=== PATIENT | male | born 1945 | race Caucasian/White ===

== ENCOUNTER → 2020-12-02 14:21 | Outpatient (CLI) | payer MEDICARE, SELFPAY ==
--- NOTE | 2020-12-02 14:25 | DI.RAD.S_ITS ---
PROCEDURE: XR SHOULDER RT MIN 2V INDICATIONS: BI SHOULDER PAIN TECHNIQUE: 3 views of the shoulder were acquired. COMPARISON: None. FINDINGS: Bones: No fractures or dislocations. No suspicious bony lesions. Visualized ribs appear intact. Severe periarticular osteophyte formation at the acromioclavicular joint. Moderate periarticular osteophyte formation at the glenohumeral joint. Soft tissues: No suspicious soft tissue calcifications. IMPRESSION: Osteoarthritis. No acute fracture. No osseous lesion. If symptoms and/or clinical suspicion for pathology persist, further assessment with repeat, or advanced imaging (e.g., CT, MRI, or bone scan) may be helpful for further assessment. Dictated by: Gurwinder Harper M.D. on 12/02/2020 at 13:54 Approved by: Gurwinder Harper M.D. on 12/02/2020 at 13:54
--- NOTE | 2020-12-02 14:25 | DI.RAD.S_ITS ---
PROCEDURE: XR SHOULDER LT MIN 2V INDICATIONS: BI SHOULDER PAIN TECHNIQUE: 3 views of the shoulder were acquired. COMPARISON: None. FINDINGS: Bones: No fractures or dislocations. No suspicious bony lesions. Visualized ribs appear intact. Moderate periarticular osteophyte formation at the acromioclavicular and glenohumeral joints. Soft tissues: No suspicious soft tissue calcifications. IMPRESSION: Osteoarthritis. No acute fracture. No osseous lesion. If symptoms and/or clinical suspicion for pathology persist, further assessment with repeat, or advanced imaging (e.g., CT, MRI, or bone scan) may be helpful for further assessment. Dictated by: Gurwinder Harper M.D. on 12/02/2020 at 13:53 Approved by: Gurwinder Harper M.D. on 12/02/2020 at 13:54
== END ==
PROVIDERS: PCP Family Medicine; Referring Provider Family Medicine; Visit Provider Family Medicine
DX: M25.511 Pain in right shoulder (principal); M25.512 Pain in left shoulder; M19.012 Primary osteoarthritis, left shoulder; M19.011 Primary osteoarthritis, right shoulder
CPT/HCPCS: 73030

== ENCOUNTER → 2021-10-11 06:56 | Outpatient (CLI) | payer MEDICARE, SELFPAY ==
--- NOTE | 2021-10-11 | DI.ECHO.S_ITS ---
[facility] +---------+ : : [address] : : : [place], [place] : : : : [id number] : : : : Phone: [phone]+ Echocardiogram Report + + :Name: RAFIQ HERNANDEZ Study Date: 10/11/2021 Height: 66 in : :[facility] ReadingLocation: Weight: 240 lb : : Gender: Male BSA: 2.2 m2 : :: 1945 Age: 76 yrs BP: 159/89 mmHg: :Reason For Study: Dyspnea : :Ordering Physician: VENICE, : :ROMARIO Performed By: Danny Mackenzie : :Referring: ROMARIO MILLARD : + + Interpretation Summary A contrast injection of Definity was performed to improve assessment of LV function. The ejection fraction is estimated to be 55-60%. There are no focal wall motion abnormalities. There is mild aortic regurgitation. The ascending aorta is mildly enlarged. Procedure: A two-dimensional transthoracic echocardiogram with color flow and Doppler was performed. The study quality was technically adequate. There is no prior echocardiogram noted for this patient. A contrast injection of Definity was performed to improve assessment of LV function. The patient was in normal sinus rhythm during the exam. Left Ventricle: The left ventricle is normal in size and wall thickness. Trabeculae near apex are visualized. No thrombus is observed. Left ventricular systolic function is normal. The ejection fraction is estimated to be 55-60%. There are no focal wall motion abnormalities. Diastolic function could not be accurately assessed due to unobtainable data. Right Ventricle: The right ventricle is normal in size and function. Atria: Both atria are normal in size. The interatrial septum grossly appears intact with no obvious evidence for an atrial septal defect. Mitral Valve: The mitral valve is normal in structure and function. There is no mitral regurgitation noted. Aortic Valve: There is mild aortic valve sclerosis. There is mild aortic regurgitation. Tricuspid Valve: The tricuspid valve is normal in structure and function. There is a trace or physiologic amount of tricuspid regurgitation. Pulmonary artery pressures cannot be estimated because of the lack of a measurable TR jet velocity. Pulmonic Valve: The pulmonic valve is normal in structure and function. There is a trace or physiologic amount of pulmonic regurgitation. Great Vessels: The aortic root is normal size. The ascending aorta is mildly enlarged. The IVC is of normal diameter and collapses greater than 50% with a sniff. This suggests a low right atrial pressure of 3 mm Hg. Pericardium/ Pleura There is no pericardial effusion. There is no pleural effusion. MMode/2D Measurements & Calculations LVIDd: 5.8 cm LVOT diam: 2.3 cm LVIDs: 4.0 cm Ao root diam: 3.6 cm FS: 31.0 % asc Aorta Diam: 3.8 cm IVSd: 1.0 cm LVPWd: 0.90 cm LV corona. diameter/BSA (cm/m^2): 2.7 LV sys. diameter/BSA (cm/m^2): 1.9 LA dimension: 3.9 cm RA long axis: 5.1 cm LA A2 area: 20.2 cm2 LA A4 area: 17.5 cm2 LA length (vol): 5.8 cm LA vol: 52.2 ml LA vol index: 24.1 ml/m2 TAPSE_phl: 2.5 cm Doppler Measurements & Calculations Ao V2 max: 140.0 cm/sec LVOT Max Grant: 114.0 cm/sec Ao V2 mean: 95.5 cm/sec LV V1 max P.2 mmHg Ao max P.0 mmHg LV V1 VTI: 24.3 cm Ao mean P.0 mmHg NETTIE(I,D): 4.0 cm2 Ao V2 VTI: 25.2 cm NETTIE(V,D): 3.4 cm2 sev ratio: 0.96 NETTIE indexed to BSA (cm^2/m^2): 1.9 MV E max grant: 60.8 cm/sec SV(LVOT): 101.0 ml MV A max grant: 74.6 cm/sec MV E/A: 0.82 Med Peak E' Grant: 5.4 cm/sec E/E' med: 11.2 Lat Peak E' Grant: 7.7 cm/sec E/E' lat: 7.9 E/e' average: 9.5 MV dec time: 0.28 sec AV VR_phl: 0.81 MV P1/2t-pr_phl: 83.0 msec NETTIE(VTI)/BSA_phl: 1.9 Reading Physician:08:51 AM
== END ==
PROVIDERS: PCP Family Medicine; Referring Provider Student in an Organized Health Care Education/Training Program; Visit Provider Student in an Organized Health Care Education/Training Program
DX: I35.1 Nonrheumatic aortic (valve) insufficiency (principal); I77.89 Other specified disorders of arteries and arterioles; R06.09 Other forms of dyspnea; R22.43 Localized swelling, mass and lump, lower limb, bilateral
CPT/HCPCS: C8929; Q9957

== ENCOUNTER 2022-01-06 04:45 | Observation (INO) | payer OTHER, SELFPAY ==
[2022-01-06] VITALS (20 sets, daily range): BP systolic 139–210; BP diastolic 67–90; PULSE 62–80; RESP 14–26; TEMP 35.9–36.5; O2SAT 93–100; BMI 36.6
--- NOTE | 2022-01-06 05:04 | DI.CT.S_ITS ---
PROCEDURE: CT HEAD/BRAIN WO CON INDICATIONS: dizzy, spinning, HTN TECHNIQUE: Noncontrast 4.5 mm thick angled axial sections acquired from the foramen magnum to the vertex, with coronal and sagittal reformats. For radiation dose reduction, the following was used: automated exposure control, adjustment of mA and/or kV according to patient size. COMPARISON: None. FINDINGS: Image quality: Excellent. CSF spaces: Basal cisterns are patent. No extra-axial fluid collections. The ventricles are symmetric in size and shape. Brain: No intracranial bleeds or masses. There is cerebral volume loss for age, with resultant ventricular and sulcal prominence. There are periventricular and deep white matter chronic small vessel ischemic changes. There is intracranial internal carotid artery atherosclerosis. Skull and face: Calvarium and visualized facial bones appear intact, without suspicious lesions. Sinuses: Visualized sinuses and mastoids are clear. IMPRESSION: No intracranial hemorrhage or acute findings. No significant discrepancy from overnight interpretation. Dictated by: Sherman Briggs M.D. on 01/06/2022 at 7:24 Approved by: Sherman Briggs M.D. on 01/06/2022 at 7:25
--- NOTE | 2022-01-06 05:05 | DI.RAD.S_ITS ---
PROCEDURE: XR CHEST 1V INDICATIONS: HTN, weak TECHNIQUE: One view of the chest was acquired. COMPARISON: None. FINDINGS: Surgical changes and devices: None. Lungs and pleura: Lungs are clear. No pleural effusions or pneumothorax. Mediastinum: Mediastinal contours appear normal. Heart size is normal. Bones and chest wall: No suspicious bony lesions. Overlying soft tissues appear unremarkable. IMPRESSION: No acute cardiopulmonary findings. Dictated by: Sherman Briggs M.D. on 01/06/2022 at 6:55 Approved by: Sherman Briggs M.D. on 01/06/2022 at 6:56
--- NOTE | 2022-01-06 05:06 | ED_ITS ---
HPI - General Adult <Rip Nick DO - Last Filed: 01/07/22 03:27> General Chief complaint: Shortness of Breath/Dyspnea Stated complaint: sob/dizzy Time Seen by Provider: 01/06/22 05:00 History of Present Illness HPI narrative: 76-year-old male nonsmoker with history of hypertension and diabetes presents with family in the chief complaint of dizziness and fatigue it seems to have come on rather suddenly at about 2:00 a.m. this morning. He states that he was in his normal state of health yesterday and had no issues. He states that he was vigorously chopping wood and denies any exertional symptoms or issues whatsoever with that. He states that he does have a history of vertigo and this does feel similar many was but he wanted to be checked out. He states the dizziness feels somewhere between everything spinning and him feeling like he may pass out. He states it is worse when he lays flat seems to improve when he is up and about. He denies any change in medications or missed doses. He has no significant dietary change. He denies any chest pain, runny nose, sore throat or cough. He is had no nausea, vomiting or diarrhea. He denies abdomi nal pain, dysuria, urgency or frequency. He states he has prostate biopsy coming up that he likely is feeling somewhat nervous about. Also, he has had some trouble with speech for many months and his pattern of speech tonight is no different than normal Related Data Home Medications Medication Instructions Recorded Confirmed allopurinol 300 mg tablet 150 mg PO DAILY 01/06/22 01/06/22 amlodipine 10 mg tablet 10 mg PO DAILY 01/06/22 01/06/22 glipizide 5 mg tablet 5 mg PO BID 01/06/22 01/06/22 hydrochlorothiazide 12.5 mg tablet 12.5 mg PO DAILY 01/06/22 01/06/22 lisinopril 20 mg tablet 20 mg PO DAILY 01/06/22 01/06/22 metformin 1,000 mg tablet 1,000 mg PO BID 01/06/22 01/06/22 rosuvastatin 40 mg tablet 40 mg PO DAILY 01/06/22 01/06/22 Allergies Allergy/AdvReac Type Severity Reaction Status Date / Time No Known Allergies Allergy Uncoded 08/13/17 12:43 Review of Systems <Rip Nick DO - Last Filed: 01/07/22 03:27> Review of Systems Narrative: GENERAL: See HPI HEENT: Denies sinus pain, ear pain, sore throat, difficulty swallowing, dizziness. RESPIRATORY: See HPI CARDIOVASCULAR: See HPI GASTROINTESTINAL: See HPI : Denies dysuria, frequency, incontinence, hematuria, urinary retention. MUSCULOSKELETAL: denies weakness, joint pain, or bony pain SKIN: Denies rash, skin lesions, or other NEUROLOGIC: See HPI PSYCHIATRIC: No concerning psychosocial issues. 12 point review of systems is negative except for those stated above Patient History <Rip Nick DO - Last Filed: 01/07/22 03:27> Medical History (Updated 01/06/22 @ 09:56 by Kristin Stauffer DO) Chronic kidney disease, stage 3 Diabetes HTN (hypertension) Surgical History (Updated 01/06/22 @ 12:18 by Luke Webster DO) H/O umbilical hernia repair Family History (Updated 01/06/22 @ 12:18 by Luke Webster DO) Father Cancer Brother Congestive heart failure CAD (coronary artery disease) Mother CAD (coronary artery disease) Social History Smoking Status: Never smoker alcohol intake: never Exam <Rip Nick DO - Last Filed: 01/07/22 03:27> Narrative Exam Narrative: GENERAL: [76] year old patient appears stated age. Well-developed patient, in mild distress. HEAD: Atraumatic. Normocephalic. EYES: Pupils equal round and reactive. Extraocular motions intact. No scleral icterus. No injection or drainage. ENT: Nose without bleeding, purulent drainage. Throat without erythema, tonsillar hypertrophy or exudate. Airway patent. NECK: Trachea midline. Non tender CARDIOVASCULAR: Regular rate and rhythm without murmurs, gallops, or rubs. RESPIRATORY: Clear to auscultation. Breath sounds equal bilaterally. No wheezes, rales, or rhonchi. GASTROINTESTINAL: Abdomen soft, non-tender, nondistended. EXTREMITIES: No edema or joint tenderness. BACK: Nontender without deformity or crepitance. No flank tenderness. NEURO: AOx3. SKIN: No rash or erythema of visible areas Initial Vital Signs Initial Vital Signs: Vital Signs Temperature 97.1 F L 01/06/22 05:03 Pulse Rate 71 01/06/22 05:03 Respiratory Rate 20 01/06/22 05:03 Blood Pressure 210/90 H 01/06/22 05:03 Pulse Oximetry 100 01/06/22 05:03 Oxygen Delivery Method 01/06/22 05:03 <Kristin Stauffer, DO - Last Filed: 01/06/22 18:57> Initial Vital Signs Initial Vital Signs: Vital Signs Temperature 97.1 F L 01/06/22 05:03 Pulse Rate 71 01/06/22 05:03 Respiratory Rate 20 01/06/22 05:03 Blood Pressure 210/90 H 01/06/22 05:03 Pulse Oximetry 100 01/06/22 05:03 Oxygen Delivery Method 01/06/22 05:03 Course <Rip Nick, DO - Last Filed: 01/07/22 03:27> Orders Ordered: Acetaminophen (Acetaminophen 325 Mg Tablet) 975 mg PO Q8H PRN PRN Reason: Pain, Mild (1-3) Amlodipine Besylate (Amlodipine 5 Mg Tablet) 10 mg PO DAILY [facility] Dextrose (Dextrose 50 % In Water 25 Gm/50 Ml Syringe) 25 gm IV PRN PRN PRN Reason: Hypoglycemia Enoxaparin Sodium (Enoxaparin 30 Mg/0.3 Ml Syringe) 30 mg SUBCUT DAILY [facility] Insulin Human Lispro (Insulin Lispro 100 Unit/Ml 3ml Vial) 0 unit SUBCUT ACHS [facility]; Protocol Last Admin: 01/06/22 21:03 Dose: Not Given Documented By: Admin: 01/06/22 17:02 Dose: Not Given Documented By: WALDEMAR Discontinued Medications Sodium Chloride (Normal Saline 0.9%) 1,000 mls @ 125 mls/hr IV CONT [facility] Last Admin: 01/06/22 05:13 Dose: 125 mls/hr Documented By: LEYDI Meclizine HCl (Meclizine Hcl 12.5 Mg Tablet) 50 mg PO NOW ONE Stop: 01/06/22 05:05 Last Admin: 01/06/22 05:13 Dose: 50 mg Documented By: LEYDI Consultations Consultation #1: Provider on-call for his PCP contacted and patient had blood work done in August noting creatinine 1.96 with GFR 35 Vital Signs Vital signs: Vital Signs - 8 hr 01/06/22 05:03 01/06/22 05:20 01/06/22 05:20 Temperature 97.1 F L Pulse Rate 71 74 Respiratory Rate 20 Blood Pressure 210/90 H 149/73 H Pulse Oximetry 100 97 Oxygen Delivery Method Room Air 01/06/22 05:42 01/06/22 06:00 01/06/22 06:07 Temperature Pulse Rate 77 69 72 Respiratory Rate 16 20 Blood Pressure Pulse Oximetry 98 97 97 Oxygen Delivery Method 01/06/22 06:07 01/06/22 06:30 01/06/22 06:31 Temperature Pulse Rate 67 68 Respiratory Rate 17 17 Blood Pressure 169/76 H Pulse Oximetry 97 97 Oxygen Delivery Method 01/06/22 06:31 01/06/22 07:00 01/06/22 07:00 Temperature Pulse Rate 72 Respiratory Rate 21 Blood Pressure 162/73 H 152/72 H Pulse Oximetry 96 Oxygen Delivery Method 01/06/22 07:30 01/06/22 07:30 01/06/22 08:00 Temperature Pulse Rate 75 Respiratory Rate 19 Blood Pressure 139/67 148/69 H Pulse Oximetry 97 Oxygen Delivery Method 01/06/22 08:00 01/06/22 08:30 01/06/22 09:00 Temperature Pulse Rate 70 71 64 Respiratory Rate 20 22 21 Blood Pressure Pulse Oximetry 95 95 93 Oxygen Delivery Method <Kristin Stauffer, - Last Filed: 01/06/22 18:57> Orders Ordered: Acetaminophen (Acetaminophen 325 Mg Tablet) 975 mg PO Q8H PRN PRN Reason: Pain, Mild (1-3) Amlodipine Besylate (Amlodipine 5 Mg Tablet) 10 mg PO DAILY [facility] Dextrose (Dextrose 50 % In Water 25 Gm/50 Ml Syringe) 25 gm IV PRN PRN PRN Reason: Hypoglycemia Enoxaparin Sodium (Enoxaparin 30 Mg/0.3 Ml Syringe) 30 mg SUBCUT DAILY [facility] Insulin Human Lispro (Insulin Lispro 100 Unit/Ml 3ml Vial) 0 unit SUBCUT ACHS [facility]; Protocol Last Admin: 01/06/22 21:03 Dose: Not Given Documented By: Admin: 01/06/22 17:02 Dose: Not Given Documented By: WALDEMAR Discontinued Medications Sodium Chloride (Normal Saline 0.9%) 1,000 mls @ 125 mls/hr IV CONT [facility] Last Admin: 01/06/22 05:13 Dose: 125 mls/hr Documented By: LEYDI Meclizine HCl (Meclizine Hcl 12.5 Mg Tablet) 50 mg PO NOW ONE Stop: 01/06/22 05:05 Last Admin: 01/06/22 05:13 Dose: 50 mg Documented By: LEYDI Consultations Consultation #2: Dr. Webster, hospitalist: Accepts for observation for vertigo unclear origin with longstanding speech issues and some weakness in the left leg although patient does have some knee pain. Patient also has acute on chronic kidney disease which appears to be intrinsic based on ultrasound and FENA. Was re-contacted with Cardiology recommendations after having run of a wide complex tachycardia. Consultation #3: Dr. Dang, cardiology [facility]. Review patient's telemetry as well as EKG, feels that this time it is unsustained ventricular tachycardia, does not require transfer today or device implantation does recommend echo, stress test, mac, potassium and TSH if testing is negative follow-up outpatient with Cardiology for event monitor. If positive testing to re-contact cardiology. Can start patient on metoprolol 12.5 mg daily. Time: 09:45 Vital Signs Vital signs: Vital Signs - 8 hr 01/06/22 05:03 01/06/22 05:20 01/06/22 05:20 Temperature 97.1 F L Pulse Rate 71 74 Respiratory Rate 20 Blood Pressure 210/90 H 149/73 H Pulse Oximetry 100 97 Oxygen Delivery Method Room Air 01/06/22 05:42 01/06/22 06:00 01/06/22 06:07 Temperature Pulse Rate 77 69 72 Respiratory Rate 16 20 Blood Pressure Pulse Oximetry 98 97 97 Oxygen Delivery Method 01/06/22 06:07 01/06/22 06:30 01/06/22 06:31 Temperature Pulse Rate 67 68 Respiratory Rate 17 17 Blood Pressure 169/76 H Pulse Oximetry 97 97 Oxygen Delivery Method 01/06/22 06:31 01/06/22 07:00 01/06/22 07:00 Temperature Pulse Rate 72 Respiratory Rate 21 Blood Pressure 162/73 H 152/72 H Pulse Oximetry 96 Oxygen Delivery Method 01/06/22 07:30 01/06/22 07:30 01/06/22 08:00 Temperature Pulse Rate 75 Respiratory Rate 19 Blood Pressure 139/67 148/69 H Pulse Oximetry 97 Oxygen Delivery Method 01/06/22 08:00 01/06/22 08:30 01/06/22 09:00 Temperature Pulse Rate 70 71 64 Respiratory Rate 20 22 21 Blood Pressure Pulse Oximetry 95 95 93 Oxygen Delivery Method Medical Decision Making <Rip [place], - Last Filed: 01/07/22 03:27> Lab Data Result diagrams: 01/06/22 05:21 01/06/22 07:22 Labs: Lab Results 01/06/22 01/06/22 01/06/22 Range/Units 05:21 05:21 05:21 WBC 8.2 (4.5-11.0) X10^3/uL RBC 3.76 L (4.5-5.9) X10^6/uL Hgb 12.4 L (13.5-17.5) g/dL Hct 36.2 L (41-53) % MCV 96.1 (80-100) fL MCH 32.9 (26-34) PG MCHC 34.2 (30-36) % RDW 14.5 (11.6-14.8) % Plt Count 224 (150-400) X10^3/uL Neut % (Auto) 73.7 (50-75) % Lymph % (Auto) 15.9 L (25-40) % Dickenson % (Auto) 8.2 (3-14) % Eos % (Auto) 1.4 L (2-4) % Baso % (Auto) 0.8 (0-2) % Neut # (Auto) 6100 (1004-0213) /uL Lymph # (Auto) 1300 (2456-3024) /uL Dickenson # (Auto) 700 (0-900) /uL Eos # (Auto) 100 (0-450) /uL Baso # (Auto) 100 (0-100) /uL Sodium 137 (137-145) mmol/L Potassium 4.4 (3.4-5.1) mmol/L Chloride 108 H (98-107) mmol/L Carbon Dioxide 24 (22-32) mmol/L BUN 47 H (9-20) mg/dL Creatinine 2.82 H (0.66-1.25) mg/dL Estimated GFR 23 L (>60) mL/min BUN/Creatinine Ratio 16.7 (6-22) Glucose 146 H (80-110) mg/dL Calcium 8.8 (8.4-10.2) mg/dL Magnesium 1.7 (1.6-2.3) mg/dL Total Bilirubin 0.6 (0.2-1.3) mg/dL AST 39 (17-59) IU/L ALT 37 (<50) IU/L Alkaline Phosphatase 84 (38-126) U/L Total Creatine Kinase 60 (55-170) U/L CK-MB (CK-2) TNP CK-MB (CK-2) Rel Index TNP Troponin I 0.015 (0.01-0.034) ng/mL NT-Pro-B Natriuret Pep 916 H (<125) pg/mL Total Protein 6.7 (6.3-8.2) g/dL Albumin 3.7 (3.5-5.0) g/dL Globulin 3.0 (1.7-4.1) g/dL Albumin/Globulin Ratio 1.2 (1.0-2.8) TSH 3.16 (0.47-4.68) uIU/mL Urine Color Urine Appearance Urine pH (4.5-8.0) Ur Specific Mullin (1.000-1.035) Urine Protein (Negative) Urine Glucose (UA) (Negative) g/dL Urine Ketones (NEGATIVE) Urine Occult Blood (Negative) Urine Nitrate (Negative) Urine Bilirubin (NEGATIVE) Urine Urobilinogen (0.2) E.U./dL Ur Leukocyte Esterase (NEGATIVE) Urine RBC (0-5/HPF) Urine WBC (0-5/HPF) Urine Bacteria (None) Hyaline Casts (None) Ur Culture Indicated? Ur Random Sodium (30-90) mmol/L Urine Creatinine mg/dL SARS-CoV-2 (PCR) (Negative) 01/06/22 01/06/22 01/06/22 Range/Units 06:05 06:05 07:18 WBC (4.5-11.0) X10^3/uL RBC (4.5-5.9) X10^6/uL Hgb (13.5-17.5) g/dL Hct (41-53) % MCV (80-100) fL MCH (26-34) PG MCHC (30-36) % RDW (11.6-14.8) % Plt Count (150-400) X10^3/uL Neut % (Auto) (50-75) % Lymph % (Auto) (25-40) % Dickenson % (Auto) (3-14) % Eos % (Auto) (2-4) % Baso % (Auto) (0-2) % Neut # (Auto) (2307-6611) /uL Lymph # (Auto) (1337-7636) /uL Dickenson # (Auto) (0-900) /uL Eos # (Auto) (0-450) /uL Baso # (Auto) (0-100) /uL Sodium (137-145) mmol/L Potassium (3.4-5.1) mmol/L Chloride (98-107) mmol/L Carbon Dioxide (22-32) mmol/L BUN (9-20) mg/dL Creatinine (0.66-1.25) mg/dL Estimated GFR (>60) mL/min BUN/Creatinine Ratio (6-22) Glucose (80-110) mg/dL Calcium (8.4-10.2) mg/dL Magnesium (1.6-2.3) mg/dL Total Bilirubin (0.2-1.3) mg/dL AST (17-59) IU/L ALT (<50) IU/L Alkaline Phosphatase (38-126) U/L Total Creatine Kinase (55-170) U/L CK-MB (CK-2) CK-MB (CK-2) Rel Index Troponin I (0.01-0.034) ng/mL NT-Pro-B Natriuret Pep (<125) pg/mL Total Protein (6.3-8.2) g/dL Albumin (3.5-5.0) g/dL Globulin (1.7-4.1) g/dL Albumin/Globulin Ratio (1.0-2.8) TSH (0.47-4.68) uIU/mL Urine Color Yellow Urine Appearance Clear Urine pH 6.0 (4.5-8.0) Ur Specific Mullin 1.015 (1.000-1.035) Urine Protein 1+ H (Negative) Urine Glucose (UA) Trace H (Negative) g/dL Urine Ketones Negative (NEGATIVE) Urine Occult Blood 2+ H (Negative) Urine Nitrate Negative (Negative) Urine Bilirubin Negative (NEGATIVE) Urine Urobilinogen 0.2 (0.2) E.U./dL Ur Leukocyte Esterase Negative (NEGATIVE) Urine RBC 0-1/hpf (0-5/HPF) Urine WBC None seen (0-5/HPF) Urine Bacteria None seen (None) Hyaline Casts 0-1/lpf (None) Ur Culture Indicated? Cult not indicated Ur Random Sodium 111 H (30-90) mmol/L Urine Creatinine 69.6 mg/dL SARS-CoV-2 (PCR) Negative (Negative) 01/06/22 01/06/22 Range/Units 07:22 07:22 WBC (4.5-11.0) X10^3/uL RBC (4.5-5.9) X10^6/uL Hgb (13.5-17.5) g/dL Hct (41-53) % MCV (80-100) fL MCH (26-34) PG MCHC (30-36) % RDW (11.6-14.8) % Plt Count (150-400) X10^3/uL Neut % (Auto) (50-75) % Lymph % (Auto) (25-40) % Dickenson % (Auto) (3-14) % Eos % (Auto) (2-4) % Baso % (Auto) (0-2) % Neut # (Auto) (7374-6811) /uL Lymph # (Auto) (2263-0974) /uL Dickenson # (Auto) (0-900) /uL Eos # (Auto) (0-450) /uL Baso # (Auto) (0-100) /uL Sodium 139 (137-145) mmol/L Potassium 4.5 (3.4-5.1) mmol/L Chloride 108 H (98-107) mmol/L Carbon Dioxide 24 (22-32) mmol/L BUN 43 H (9-20) mg/dL Creatinine 2.66 H (0.66-1.25) mg/dL Estimated GFR 24 L (>60) mL/min BUN/Creatinine Ratio 16.2 (6-22) Glucose 149 H (80-110) mg/dL Calcium 8.3 L (8.4-10.2) mg/dL Magnesium (1.6-2.3) mg/dL Total Bilirubin (0.2-1.3) mg/dL AST (17-59) IU/L ALT (<50) IU/L Alkaline Phosphatase (38-126) U/L Total Creatine Kinase (55-170) U/L CK-MB (CK-2) CK-MB (CK-2) Rel Index Troponin I 0.015 (0.01-0.034) ng/mL NT-Pro-B Natriuret Pep (<125) pg/mL Total Protein (6.3-8.2) g/dL Albumin (3.5-5.0) g/dL Globulin (1.7-4.1) g/dL Albumin/Globulin Ratio (1.0-2.8) TSH (0.47-4.68) uIU/mL Urine Color Urine Appearance Urine pH (4.5-8.0) Ur Specific Mullin (1.000-1.035) Urine Protein (Negative) Urine Glucose (UA) (Negative) g/dL Urine Ketones (NEGATIVE) Urine Occult Blood (Negative) Urine Nitrate (Negative) Urine Bilirubin (NEGATIVE) Urine Urobilinogen (0.2) E.U./dL Ur Leukocyte Esterase (NEGATIVE) Urine RBC (0-5/HPF) Urine WBC (0-5/HPF) Urine Bacteria (None) Hyaline Casts (None) Ur Culture Indicated? Ur Random Sodium (30-90) mmol/L Urine Creatinine mg/dL SARS-CoV-2 (PCR) (Negative) Imaging Data CT scan - head: Radiologist's Impression: No acute intracranial findings Chest x-ray: Radiologist's Impression: No acute findings <Kristin Stauffer, DO - Last Filed: 01/06/22 18:57> Lab Data Labs: Lab Results 01/06/22 01/06/22 01/06/22 Range/Units 05:21 05:21 05:21 WBC 8.2 (4.5-11.0) X10^3/uL RBC 3.76 L (4.5-5.9) X10^6/uL Hgb 12.4 L (13.5-17.5) g/dL Hct 36.2 L (41-53) % MCV 96.1 (80-100) fL MCH 32.9 (26-34) PG MCHC 34.2 (30-36) % RDW 14.5 (11.6-14.8) % Plt Count 224 (150-400) X10^3/uL Neut % (Auto) 73.7 (50-75) % Lymph % (Auto) 15.9 L (25-40) % Dickenson % (Auto) 8.2 (3-14) % Eos % (Auto) 1.4 L (2-4) % Baso % (Auto) 0.8 (0-2) % Neut # (Auto) 6100 (1907-1010) /uL Lymph # (Auto) 1300 (3775-0170) /uL Dickenson # (Auto) 700 (0-900) /uL Eos # (Auto) 100 (0-450) /uL Baso # (Auto) 100 (0-100) /uL Sodium 137 (137-145) mmol/L Potassium 4.4 (3.4-5.1) mmol/L Chloride 108 H (98-107) mmol/L Carbon Dioxide 24 (22-32) mmol/L BUN 47 H (9-20) mg/dL Creatinine 2.82 H (0.66-1.25) mg/dL Estimated GFR 23 L (>60) mL/min BUN/Creatinine Ratio 16.7 (6-22) Glucose 146 H (80-110) mg/dL Calcium 8.8 (8.4-10.2) mg/dL Magnesium 1.7 (1.6-2.3) mg/dL Total Bilirubin 0.6 (0.2-1.3) mg/dL AST 39 (17-59) IU/L ALT 37 (<50) IU/L Alkaline Phosphatase 84 (38-126) U/L Total Creatine Kinase 60 (55-170) U/L CK-MB (CK-2) TNP CK-MB (CK-2) Rel Index TNP Troponin I 0.015 (0.01-0.034) ng/mL NT-Pro-B Natriuret Pep 916 H (<125) pg/mL Total Protein 6.7 (6.3-8.2) g/dL Albumin 3.7 (3.5-5.0) g/dL Globulin 3.0 (1.7-4.1) g/dL Albumin/Globulin Ratio 1.2 (1.0-2.8) TSH 3.16 (0.47-4.68) uIU/mL Urine Color Urine Appearance Urine pH (4.5-8.0) Ur Specific Mullin (1.000-1.035) Urine Protein (Negative) Urine Glucose (UA) (Negative) g/dL Urine Ketones (NEGATIVE) Urine Occult Blood (Negative) Urine Nitrate (Negative) Urine Bilirubin (NEGATIVE) Urine Urobilinogen (0.2) E.U./dL Ur Leukocyte Esterase (NEGATIVE) Urine RBC (0-5/HPF) Urine WBC (0-5/HPF) Urine Bacteria (None) Hyaline Casts (None) Ur Culture Indicated? Ur Random Sodium (30-90) mmol/L Urine Creatinine mg/dL SARS-CoV-2 (PCR) (Negative) 01/06/22 01/06/22 01/06/22 Range/Units 06:05 06:05 07:18 WBC (4.5-11.0) X10^3/uL RBC (4.5-5.9) X10^6/uL Hgb (13.5-17.5) g/dL Hct (41-53) % MCV (80-100) fL MCH (26-34) PG MCHC (30-36) % RDW (11.6-14.8) % Plt Count (150-400) X10^3/uL Neut % (Auto) (50-75) % Lymph % (Auto) (25-40) % Dickenson % (Auto) (3-14) % Eos % (Auto) (2-4) % Baso % (Auto) (0-2) % Neut # (Auto) (1888-2509) /uL Lymph # (Auto) (3039-5144) /uL Dickenson # (Auto) (0-900) /uL Eos # (Auto) (0-450) /uL Baso # (Auto) (0-100) /uL Sodium (137-145) mmol/L Potassium (3.4-5.1) mmol/L Chloride (98-107) mmol/L Carbon Dioxide (22-32) mmol/L BUN (9-20) mg/dL Creatinine (0.66-1.25) mg/dL Estimated GFR (>60) mL/min BUN/Creatinine Ratio (6-22) Glucose (80-110) mg/dL Calcium (8.4-10.2) mg/dL Magnesium (1.6-2.3) mg/dL Total Bilirubin (0.2-1.3) mg/dL AST (17-59) IU/L ALT (<50) IU/L Alkaline Phosphatase (38-126) U/L Total Creatine Kinase (55-170) U/L CK-MB (CK-2) CK-MB (CK-2) Rel Index Troponin I (0.01-0.034) ng/mL NT-Pro-B Natriuret Pep (<125) pg/mL Total Protein (6.3-8.2) g/dL Albumin (3.5-5.0) g/dL Globulin (1.7-4.1) g/dL Albumin/Globulin Ratio (1.0-2.8) TSH (0.47-4.68) uIU/mL Urine Color Yellow Urine Appearance Clear Urine pH 6.0 (4.5-8.0) Ur Specific Mullin 1.015 (1.000-1.035) Urine Protein 1+ H (Negative) Urine Glucose (UA) Trace H (Negative) g/dL Urine Ketones Negative (NEGATIVE) Urine Occult Blood 2+ H (Negative) Urine Nitrate Negative (Negative) Urine Bilirubin Negative (NEGATIVE) Urine Urobilinogen 0.2 (0.2) E.U./dL Ur Leukocyte Esterase Negative (NEGATIVE) Urine RBC 0-1/hpf (0-5/HPF) Urine WBC None seen (0-5/HPF) Urine Bacteria None seen (None) Hyaline Casts 0-1/lpf (None) Ur Culture Indicated? Cult not indicated Ur Random Sodium 111 H (30-90) mmol/L Urine Creatinine 69.6 mg/dL SARS-CoV-2 (PCR) Negative (Negative) 01/06/22 01/06/22 Range/Units 07:22 07:22 WBC (4.5-11.0) X10^3/uL RBC (4.5-5.9) X10^6/uL Hgb (13.5-17.5) g/dL Hct (41-53) % MCV (80-100) fL MCH (26-34) PG MCHC (30-36) % RDW (11.6-14.8) % Plt Count (150-400) X10^3/uL Neut % (Auto) (50-75) % Lymph % (Auto) (25-40) % Dickenson % (Auto) (3-14) % Eos % (Auto) (2-4) % Baso % (Auto) (0-2) % Neut # (Auto) (0851-5681) /uL Lymph # (Auto) (7270-5457) /uL Dickenson # (Auto) (0-900) /uL Eos # (Auto) (0-450) /uL Baso # (Auto) (0-100) /uL Sodium 139 (137-145) mmol/L Potassium 4.5 (3.4-5.1) mmol/L Chloride 108 H (98-107) mmol/L Carbon Dioxide 24 (22-32) mmol/L BUN 43 H (9-20) mg/dL Creatinine 2.66 H (0.66-1.25) mg/dL Estimated GFR 24 L (>60) mL/min BUN/Creatinine Ratio 16.2 (6-22) Glucose 149 H (80-110) mg/dL Calcium 8.3 L (8.4-10.2) mg/dL Magnesium (1.6-2.3) mg/dL Total Bilirubin (0.2-1.3) mg/dL AST (17-59) IU/L ALT (<50) IU/L Alkaline Phosphatase (38-126) U/L Total Creatine Kinase (55-170) U/L CK-MB (CK-2) CK-MB (CK-2) Rel Index Troponin I 0.015 (0.01-0.034) ng/mL NT-Pro-B Natriuret Pep (<125) pg/mL Total Protein (6.3-8.2) g/dL Albumin (3.5-5.0) g/dL Globulin (1.7-4.1) g/dL Albumin/Globulin Ratio (1.0-2.8) TSH (0.47-4.68) uIU/mL Urine Color Urine Appearance Urine pH (4.5-8.0) Ur Specific Mullin (1.000-1.035) Urine Protein (Negative) Urine Glucose (UA) (Negative) g/dL Urine Ketones (NEGATIVE) Urine Occult Blood (Negative) Urine Nitrate (Negative) Urine Bilirubin (NEGATIVE) Urine Urobilinogen (0.2) E.U./dL Ur Leukocyte Esterase (NEGATIVE) Urine RBC (0-5/HPF) Urine WBC (0-5/HPF) Urine Bacteria (None) Hyaline Casts (None) Ur Culture Indicated? Ur Random Sodium (30-90) mmol/L Urine Creatinine mg/dL SARS-CoV-2 (PCR) (Negative) ECG Data Attestation: I personally reviewed and interpreted this ECG as follows: Interpretation: Sinus rhythm rate of 68, [place] 188 QRS of 102 and QTC of 435. No ST elevation depression noted. Patient does not have priors for comparison. Patient has S wave in lead 3 Patient on telemetry had several episodes up to 16 beats of what looks like a wide complex monomorphic but irregular tachycardia. Rate was approximately 120s not able to capture it on EKG patient's episodes longest was 11 seconds there were and 8 and 2nd episodes as well as 2 episodes of 4-5 beats. Patient did have a little bit of chest discomfort during the episode which resolved. Repeat EKG shows first-degree AV block sinus rhythm without any new ST changes. Rate of 70 3p are 212 QRS of 102 and QTC of 440. MDM Narrative Medical decision making narrative: 01/06/22 Mank: Patient signed out to myself for lightheadedness/vertigo/dizziness sensation with complaint of chest pain and shortness of breath. Patient does have a speech change which has been longstanding for several months, labs show hemoglobin of 12, no clear infectious changes, patient has acute on chronic kidney disease with a creatinine 2.82 and reportedly 1.9 when discussed with patient's primary care team BUN is elevated at 47, chloride 108 with a glucose of 146 and otherwise normal electrolytes, calcium with a negative troponin and slightly elevated BNP. Patient has trace blood and glucose as well as protein in urine but no other signs of infection. FENA indicates intrinsic disease. Dr. Gaines has ultrasound pending, 1L of fluids with plan to recheck BMP afterwards and plan for recheck with patient. Patient had a head CT and chest x-ray which showed no acute change today. Spoke with Dr. Sandoval who accepts suspect patient may have had stroke at some point not necessarily acutely but would probably benefit from MRI. He accepts for observation just before patient went upstairs had a run of a tachycardia that was wide complex and appears monomorphic was reviewed with telemetry and repeat EKG with Cardiology they do not feel that patient requires a device at this time but does recommend workup including echo, stress testing, Mag and TSH as well as potassium, if workup is negative with no additional episodes can follow up with Cardiology for event monitor. Dr. Dang does note that can put patient on a low-dose beta- gina 12.5 mg daily. This was also relayed to the hospitalist. Discharge Plan Departure Patient Disposition: Admitted as Observation Clinical Impression: Acute kidney injury superimposed on CKD, Vertigo, Tachycardia Admit Date/Time: 01/06/22 09:14 Admit Provider: Luke Webster
[2022-01-06] MEDS: MECLIZINE HCL 12.5 MG TABLET 50 MG PO (05:13)
[2022-01-06] MEDS: SODIUM CHLORIDE 0.9% 1,000 ML 125 ML IV (05:13)
[2022-01-06 05:31] LABS: Add Manual Diff / Slide Review NO; Basophils Absolute Auto 100 /uL (0-100); Basophils Percent Auto 0.8 % (0-2); Eosinophils Absolute Auto 100 /uL (0-450); Eosinophils Percent Auto 1.4 % (2-4); Hematocrit 36.2 % (41-53); Hemoglobin 12.4 g/dL (13.5-17.5); Lymphocytes Absolute Auto 1300 /uL (1100-4500); Lymphocytes Percent Auto 15.9 % (25-40); Mean Corpuscular HGB Conc 34.2 % (30-36); Mean Corpuscular Hemoglobin 32.9 PG (26-34); Mean Corpuscular Volume 96.1 fL (80-100); Monocytes Absolute Auto 700 /uL (0-900); Monocytes Percent Auto 8.2 % (3-14); Neutrophils Absolute Auto 6100 /uL (1500-7000); Neutrophils Percent Auto 73.7 % (50-75); Platelet Count 224 X10^3/uL (150-400); Red Blood Cell Count 3.76 X10^6/uL (4.5-5.9); Red Cell Distribution Width 14.5 % (11.6-14.8); White Blood Cell Count 8.2 X10^3/uL (4.5-11.0)
[2022-01-06 05:44] LABS: Alanine Aminotransferase 37 IU/L (<50); Albumin 3.7 g/dL (3.5-5.0); Albumin Globulin Ratio 1.2 (1.0-2.8); Alkaline Phosphatase 84 U/L (38-126); Aspartate Aminotransferase 39 IU/L (17-59); BUN Creatinine Ratio 16.7 (6-22); Bilirubin Total 0.6 mg/dL (0.2-1.3); Blood Urea Nitrogen 47 mg/dL (9-20); Calcium 8.8 mg/dL (8.4-10.2); Carbon Dioxide 24 mmol/L (22-32); Chloride 108 mmol/L (98-107); Creatine Kinase 60 U/L (55-170); Estimated Glomerular Filt Rate 23 mL/min (>60); Glucose 146 mg/dL (80-110); HEMOLYSIS < 15 (0-50); Magnesium 1.7 mg/dL (1.6-2.3); Potassium 4.4 mmol/L (3.4-5.1); Sodium 137 mmol/L (137-145); Total Protein 6.7 g/dL (6.3-8.2)
[2022-01-06 05:55] LABS: NT-proBNP (BNP-Adult 18+) 916 pg/mL (<125); Troponin I 0.015 ng/mL (0.01-0.034)
--- NOTE | 2022-01-06 05:57 | DI.US.S_ITS ---
PROCEDURE: US RENAL COMPLETE INDICATIONS: acute kidney injury TECHNIQUE: Real-time scanning was performed of the kidneys and bladder, with image documentation. COMPARISON: None. FINDINGS: Kidneys: Kidneys are normal in size. Right kidney measures 9.4 cm long; left kidney measures 0.6 cm long. Renal cortical echotexture is increased. No hydronephrosis or nephrolithiasis. No suspicious solid mass lesions. Bilateral cystic changes with a right superior pole cyst measuring 5.1 cm and the left cyst measuring 5.7 cm. Bladder: Pre-void bladder volume is 209 mL. Post-void residual is 81 mL. Pre-void images demonstrate no intraluminal masses or stones. On pre-void images, bilateral ureteral jets are noted with color Doppler interrogation. (Of note, ureteral jets may not be detectable in up to 25% of cases due to insufficient differences in specific gravity between ureteral and bladder urine). Miscellaneous: No free pelvic fluid. IMPRESSION: Increased echogenicity of the kidneys may reflect medical renal disease. Dictated by: Sherman Briggs M.D. on 01/06/2022 at 7:49 Approved by: Sherman Briggs M.D. on 01/06/2022 at 7:51
[2022-01-06 06:12] LABS: Appearance Urine UA CLEAR; Bilirubin Urine UA NEGATIVE (NEGATIVE); Color Urine UA YELLOW; Glucose Urine UA TRACE g/dL (Negative); Ketones Urine UA NEGATIVE (NEGATIVE); Leukocyte Esterase Urine UA NEGATIVE (NEGATIVE); Nitrite Urine UA NEGATIVE (Negative); Occult Blood Urine UA 2+ (Negative); Protein Urine UA 1+ (Negative); Specific Gravity Urine UA 1.015 (1.000-1.035); Urobilinogen Urine UA 0.2 E.U./dL (0.2)
[2022-01-06 06:25] LABS: Bacteria Urine None Seen; Culture Indicated Urine Cult Not Indicated; Hyaline Casts Urine 0-1/LPF; RBC Urine 0-1/HPF (0-5/HPF); WBC Urine None Seen (0-5/HPF)
[2022-01-06 06:31] LABS: Creatinine Urine Random 69.6 mg/dL; Sodium Urine Random 111 mmol/L (30-90)
[2022-01-06 07:44] LABS: COVID19 -Nasal RAPID Negative (Negative)
[2022-01-06 07:47] LABS: BUN Creatinine Ratio 16.2 (6-22); Blood Urea Nitrogen 43 mg/dL (9-20); Calcium 8.3 mg/dL (8.4-10.2); Carbon Dioxide 24 mmol/L (22-32); Chloride 108 mmol/L (98-107); Estimated Glomerular Filt Rate 24 mL/min (>60); Glucose 149 mg/dL (80-110); HEMOLYSIS < 15 (0-50); Potassium 4.5 mmol/L (3.4-5.1); Sodium 139 mmol/L (137-145)
[2022-01-06 08:23] LABS: Troponin I 0.015 ng/mL (0.01-0.034)
--- NOTE | 2022-01-06 09:13 | DI.MRI.S_ITS ---
PROCEDURE: MR HEAD/BRAIN WO CON INDICATIONS: vertigo, left leg weakness TECHNIQUE: Noncontrast axial T1 spin echo, axial T2 fast spin echo, sagittal and axial FLAIR, coronal T2 fast spin echo, axial gradient echo, axial diffusion and ADC through the brain. COMPARISON: [facility], CT, CT HEAD/BRAIN WO CON, 01/06/2022, 5:38. FINDINGS: Image quality: Excellent. CSF Spaces: Basal cisterns are patent. No extra-axial fluid collections. Ventricles are normal in size and shape. Brain: No intracranial masses or hemorrhage. Britt/white matter interface is normal. Brainstem appears normal. Diffusion-weighted images demonstrate no acute ischemic insult. No chronic ischemic insults. Normal intravascular flow voids are present. Skull and face: Calvarium has normal marrow signal. Orbits appear normal. Sinuses: Slight right maxillary sinus disease.. IMPRESSION: 1. No ischemia. 2. Mild maxillary sinus disease. Dictated by: Sherman Briggs M.D. on 01/06/2022 at 10:01 Approved by: Sherman Briggs M.D. on 01/06/2022 at 10:03
--- NOTE | 2022-01-06 09:26 | PC.NURSE ---
0921: monitor alarming for VTACH. Pt with intermittent VTACH x 1 min. awake and alert. reports lump in throat and feeling of palpitations. Feeling resolved when pt converted back to NSR. RT called for EKG. MRI held at this time. BP 142/73. cardiology paged
[2022-01-06 10:50] LABS: TSH w/ Reflex to FT4 3.16 uIU/mL (0.47-4.68)
--- NOTE | 2022-01-06 12:10 | P.HP_ITS ---
History of Present Illness History of Present Illness Date Patient Seen: 01/06/22 Chief complaint: sob/dizzy Narrative: This is a 76 year old male with PMH of HTN, DM, CKD III (cr approx 1.9-2.0) who presented with abrupt onset of vertigo that woke the patient up overnight. He denies chest pain, palpitations, shortness of breath. He felt chills during this episode. He was also having difficulty ambulating and was needing to hold on to barker. He denied focal weakness, slurred speech, or facial droop but stated he did feel confused. He denied headaches, over falls, vision changes, dysuria or urinary frequency. He has had no rashes. He does endorse some intermittent chest pressure for many years now, not seemingly related with exercise and can happen with exertion or at rest. In the emergency room, patient was hypertensive but the remainder of his vital signs were unremarkable. No prior studies are available for review. His CBC was fairly unremarkable, with a mild anemia, though his baseline is unknown. Chemistries revealed a creatinine of 2.8 which improved to 2.66 after some fluids. His electrolytes were unremarkable. Troponin was within normal limits at 0.015. ProBNP 916. TSH was unremarkable. Urinalysis showed occult blood but 0-1 RBC and no WBC. CK was 60. Covid 19 testing was negative. Patient was admitted for WYATT on CKD to hospitalist service. Prior to transfer to the hospital floor, patient had an episode of NSVT in the ER that lasted for 11 seconds and another of [address] Dang of cardiology was contacted whom recommended echo, stress testing and ACS rule out. Patient History Medical History (Updated 01/06/22 @ 09:56 by Kristin Stauffer DO) Chronic kidney disease, stage 3 Diabetes HTN (hypertension) Surgical History (Updated 01/06/22 @ 12:18 by Luke Webster DO) H/O umbilical hernia repair Family & Social History Family History (Updated 01/06/22 @ 12:18 by Luke Webster DO) Father Cancer Brother Congestive heart failure CAD (coronary artery disease) Mother CAD (coronary artery disease) Safety & Behavioral: Feels Safe in Current Yes Environment Been Physically Hurt or No Threatened By a Person Tobacco & Substance use: Smoking Status Never smoker alcohol intake never Meds Home Medications and Allergies Home Medications Medication Instructions Recorded Confirmed Type allopurinol 300 mg tablet 150 mg PO DAILY 01/06/22 01/06/22 History amlodipine 10 mg tablet 10 mg PO DAILY 01/06/22 01/06/22 History glipizide 5 mg tablet 5 mg PO BID 01/06/22 01/06/22 History hydrochlorothiazide 12.5 mg tablet 12.5 mg PO DAILY 01/06/22 01/06/22 History lisinopril 20 mg tablet 20 mg PO DAILY 01/06/22 01/06/22 History metformin 1,000 mg tablet 1,000 mg PO BID 01/06/22 01/06/22 History rosuvastatin 40 mg tablet 40 mg PO DAILY 01/06/22 01/06/22 History Allergies Allergy/AdvReac Type Severity Reaction Status Date / Time No Known Allergies Allergy Uncoded 08/13/17 12:43 Review of Systems Review of Systems Narrative: All other systems reviewed with the patient and are negative unless otherwise stated. Exam Vital Signs (past 8 hours): - 01/06/22 05:03 01/06/22 05:20 01/06/22 05:20 Temperature 97.1 F L Pulse Rate 71 74 Respiratory Rate 20 Blood Pressure 210/90 H 149/73 H Pulse Oximetry 100 97 Oxygen Delivery Method Room Air Oxygen Flow Rate 01/06/22 05:42 01/06/22 06:00 01/06/22 06:07 Temperature Pulse Rate 77 69 72 Respiratory Rate 16 20 Blood Pressure Pulse Oximetry 98 97 97 Oxygen Delivery Method Oxygen Flow Rate 01/06/22 06:07 01/06/22 06:30 01/06/22 06:31 Temperature Pulse Rate 67 68 Respiratory Rate 17 17 Blood Pressure 169/76 H Pulse Oximetry 97 97 Oxygen Delivery Method Oxygen Flow Rate 01/06/22 06:31 01/06/22 07:00 01/06/22 07:00 Temperature Pulse Rate 72 Respiratory Rate 21 Blood Pressure 162/73 H 152/72 H Pulse Oximetry 96 Oxygen Delivery Method Oxygen Flow Rate 01/06/22 07:30 01/06/22 07:30 01/06/22 08:00 Temperature Pulse Rate 75 Respiratory Rate 19 Blood Pressure 139/67 148/69 H Pulse Oximetry 97 Oxygen Delivery Method Oxygen Flow Rate 01/06/22 08:00 01/06/22 08:30 01/06/22 09:00 Temperature Pulse Rate 70 71 64 Respiratory Rate 20 22 21 Blood Pressure Pulse Oximetry 95 95 93 Oxygen Delivery Method Oxygen Flow Rate 01/06/22 09:30 01/06/22 09:32 01/06/22 09:32 Temperature Pulse Rate 73 72 Respiratory Rate 19 20 Blood Pressure 142/73 H Pulse Oximetry 97 97 Oxygen Delivery Method Oxygen Flow Rate 01/06/22 11:15 01/06/22 10:30 Temperature 96.7 F L Pulse Rate 80 Respiratory Rate 26 H Blood Pressure 140/81 Pulse Oximetry 98 Oxygen Delivery Method Room Air Oxygen Flow Rate 0 Oxygen Delivery Method Room Air Oxygen Flow Rate 0 Narrative Exam Narrative: General:? Patient is well developed and well nourished, in no distress at this time. HEENT:? Normocephalic, atraumatic, extraocular muscles intact, oral pharynx is clear and mucous membranes are moist. Neck: supple and symmetric, trachea is midline, no cervical adenopathy. Negative for JVD Chest:? Normal AP diameter and contour without kyphoscoliosis, no tachypnea, equal chest rise bilaterally. Lungs:? CTA b/l no wheezing rhonchi or rales. Cardio:?RRR no m/r/g. Abdomen: S NT ND. No CVA tenderness. Musculoskeletal:? Muscle strength and tone are equal within normal limits, no deformity. Extremities: No edema or joint effusions. No cyanosis or clubbing. Skin:? Pale,? Warm to touch,dry and intact without rashes, ulcerations or petechiae.? Neuro:? Alert and orientated x3,? sensation to touch intact in all extremities, no gross deficits noted of cranial nerves. Psych:? Patient has a well-kept appearance, appropriate affect, mental status attitude thought context and judgment are appropriate for age. Objective ECG Impression: NSR, as interpreted by me. No evidence of ST/T wave changes or ischemia. Labs Result Diagrams: 01/06/22 05:21 01/06/22 07:22 Labs: Laboratory Results - last 24 hr 01/06/22 01/06/22 01/06/22 05:21 05:21 05:21 WBC 8.2 RBC 3.76 L Hgb 12.4 L Hct 36.2 L MCV 96.1 MCH 32.9 MCHC 34.2 RDW 14.5 Plt Count 224 Neut % (Auto) 73.7 Lymph % (Auto) 15.9 L [place] % (Auto) 8.2 Eos % (Auto) 1.4 L Baso % (Auto) 0.8 Neut # (Auto) 6100 Lymph # (Auto) 1300 [place] # (Auto) 700 Eos # (Auto) 100 Baso # (Auto) 100 Sodium 137 Potassium 4.4 Chloride 108 H Carbon Dioxide 24 BUN 47 H Creatinine 2.82 H Estimated GFR 23 L BUN/Creatinine Ratio 16.7 Glucose 146 H Calcium 8.8 Magnesium 1.7 Total Bilirubin 0.6 AST 39 ALT 37 Alkaline Phosphatase 84 Total Creatine Kinase 60 CK-MB (CK-2) TNP CK-MB (CK-2) Rel Index TNP Troponin I 0.015 NT-Pro-B Natriuret Pep 916 H Total Protein 6.7 Albumin 3.7 Globulin 3.0 Albumin/Globulin Ratio 1.2 TSH 3.16 Urine Color Urine Appearance Urine pH Ur Specific [place] Urine Protein Urine Glucose (UA) Urine Ketones Urine Occult Blood Urine Nitrate Urine Bilirubin Urine Urobilinogen Ur Leukocyte Esterase Urine RBC Urine WBC Urine Bacteria Hyaline Casts Ur Culture Indicated? Ur Random Sodium Urine Creatinine SARS-CoV-2 (PCR) 01/06/22 01/06/22 01/06/22 06:05 06:05 07:18 WBC RBC Hgb Hct MCV MCH MCHC RDW Plt Count Neut % (Auto) Lymph % (Auto) [place] % (Auto) Eos % (Auto) Baso % (Auto) Neut # (Auto) Lymph # (Auto) [place] # (Auto) Eos # (Auto) Baso # (Auto) Sodium Potassium Chloride Carbon Dioxide BUN Creatinine Estimated GFR BUN/Creatinine Ratio Glucose Calcium Magnesium Total Bilirubin AST ALT Alkaline Phosphatase Total Creatine Kinase CK-MB (CK-2) CK-MB (CK-2) Rel Index Troponin I NT-Pro-B Natriuret Pep Total Protein Albumin Globulin Albumin/Globulin Ratio TSH Urine Color Yellow Urine Appearance Clear Urine pH 6.0 Ur Specific [place] 1.015 Urine Protein 1+ H Urine Glucose (UA) Trace H Urine Ketones Negative Urine Occult Blood 2+ H Urine Nitrate Negative Urine Bilirubin Negative Urine Urobilinogen 0.2 Ur Leukocyte Esterase Negative Urine RBC 0-1/hpf Urine WBC None seen Urine Bacteria None seen Hyaline Casts 0-1/lpf Ur Culture Indicated? Cult not indicated Ur Random Sodium 111 H Urine Creatinine 69.6 SARS-CoV-2 (PCR) Negative 01/06/22 01/06/22 07:22 07:22 WBC RBC Hgb Hct MCV MCH MCHC RDW Plt Count Neut % (Auto) Lymph % (Auto) [place] % (Auto) Eos % (Auto) Baso % (Auto) Neut # (Auto) Lymph # (Auto) [place] # (Auto) Eos # (Auto) Baso # (Auto) Sodium 139 Potassium 4.5 Chloride 108 H Carbon Dioxide 24 BUN 43 H Creatinine 2.66 H Estimated GFR 24 L BUN/Creatinine Ratio 16.2 Glucose 149 H Calcium 8.3 L Magnesium Total Bilirubin AST ALT Alkaline Phosphatase Total Creatine Kinase CK-MB (CK-2) CK-MB (CK-2) Rel Index Troponin I 0.015 NT-Pro-B Natriuret Pep Total Protein Albumin Globulin Albumin/Globulin Ratio TSH Urine Color Urine Appearance Urine pH Ur Specific [place] Urine Protein Urine Glucose (UA) Urine Ketones Urine Occult Blood Urine Nitrate Urine Bilirubin Urine Urobilinogen Ur Leukocyte Esterase Urine RBC Urine WBC Urine Bacteria Hyaline Casts Ur Culture Indicated? Ur Random Sodium Urine Creatinine SARS-CoV-2 (PCR) Assessment & Plan Assessment & Plan narrative: 1. Vertigo - Possible cardiogenic source given NSVT while in the ER. May be symptoms from acute renal failure though not entirely clear. He feels improved now. - TTE ordered, 8 hour troponin to rule out atypical ACS presentation. - MRI negative for acute infarct. Head CT unremarkable. - continue telemetry - depending on frequency, TTE results, stress testing to be considered as an inpatient or if deferred to outpatient. 2. WYATT on CKD - unclear etiology at this time. continue telemetry though doubt frequent arrythmias. - possible dehydration - TTE ordered as noted above, seems low likelihood this is related to cardiac disease. - may represent progression of CKD, timing for most recent creatinine is unknown. 3. HTN - continue home amlodipine, hold lisinopril and HCTZ given possible WYATT at this time 4. DM - diabetic diet - sliding scale 5. NSVT - consider addition of beta gina - TTE ordered - consider stress testing, inpatient or outpatient. 6. Obesity, BMI 36.6 - increases patient's risk for cardiac disease. Code: Full, surrogate is patient's Roommate DVT: lovenox, renal dosing I have utilized all available immediate resources to obtain, update, or review the patient's current medications. Time Spent With Patient Critical Care time: I spent a total of [] minutes of critical care time on this patient's care today; this time is exclusive of procedural time. Quality VTE Deep Vein Thrombosis/Pulmonary Embolism Present on Admission: No MIPS - Admit I confirm the patient?s Advance Care Plan is present, Code status is documented, Surrogate decision maker is in patient?s record [If Yes, STOP here]: Yes
--- NOTE | 2022-01-06 15:42 | PC.NURSE ---
Pt arrived at 1030am in wheelchair from MRI. A&Ox4, no c/o pain, no c/o dizziness. Ambulating in room. Voiding well, last BM 01/05. VSS, lungs CTA, skin intact. Urinal and ice water provided. Pt oriented to room and call light. No further needs at this time.
--- NOTE | 2022-01-06 16:16 | DI.ECHO.S_ITS ---
[facility]---------+ [facility] +---------+ : : [address] : : : : [id number] : : : : Phone: [phone]+ Echocardiogram Report + + :Name: RAFIQ HERNANDEZ Study Date: 01/08/2022 Height: 67 in : :[facility] ReadingLocation: Weight: 234 lb : : Gender: Male BSA: 2.2 m2 : :: 1945 Age: 76 yrs BP: 137/77 mmHg: :Reason For Study: Syncope : :Ordering Physician: MICK, : :NINO ALONSO Performed By: Danny Mackenzie : :Referring: NINO BARTON : + + Interpretation Summary The ejection fraction is estimated to be 50-55%. Diastolic parameters suggest probable normal left ventricular diastolic function and normal filling pressures. The right ventricle is mildly dilated. The right ventricular systolic function is normal. There is mild aortic regurgitation. Pulmonary artery pressures cannot be estimated because of the lack of a measurable TR jet velocity. The ascending aorta is mildly enlarged. Compared to the prior study dated 10/11/2021, there has been a slight decrease in ventricular function and a mild dilation of the right ventricle. In addition, the prominent left ventricular apical trabeculations are again noted however ultrasound contrast was not used on the current study. Consider further evaluation for noncompaction with a cardiac MRI. Procedure: A two-dimensional transthoracic echocardiogram with color flow and Doppler was performed. The study quality was technically adequate. Comparison is made with the echocardiogram of 10/11/2021. Left Ventricle: The left ventricle is normal in size and wall thickness. The ejection fraction is estimated to be 50-55%. There are no focal wall motion abnormalities. Diastolic parameters suggest probable normal left ventricular diastolic function and normal filling pressures. Right Ventricle: The right ventricle is mildly dilated. The right ventricular systolic function is normal. Atria: Both atria are normal in size. The interatrial septum grossly appears intact with no obvious evidence for an atrial septal defect. Mitral Valve: The mitral valve is normal in structure and function. There is no mitral regurgitation noted. Aortic Valve: The aortic valve is slightly calcified. The aortic valve is trileaflet. There is no aortic valve stenosis. There is mild aortic regurgitation. Tricuspid Valve: The tricuspid valve is normal in structure and function. There is a trace or physiologic amount of tricuspid regurgitation. Pulmonary artery pressures cannot be estimated because of the lack of a measurable TR jet velocity. Pulmonic Valve: The pulmonic valve is normal in structure and function. There is trace pulmonic regurgitation. Great Vessels: The aortic root is normal size. The ascending aorta is mildly enlarged. The IVC is of normal diameter and collapses greater than 50% with a sniff. This suggests a low right atrial pressure of 3 mm Hg. Pericardium/ Pleura There is no pericardial effusion. There is no pleural effusion. MMode/2D Measurements & Calculations LVIDd: 6.0 cm LVOT diam: 2.4 cm LVIDs: 4.2 cm Ao root diam: 3.7 cm FS: 30.0 % asc Aorta Diam: 3.9 cm IVSd: 1.0 cm LVPWd: 0.90 cm LV corona. diameter/BSA (cm/m^2): 2.8 LV sys. diameter/BSA (cm/m^2): 1.9 LA dimension: 3.6 cm RA long axis: 5.1 cm LA A2 area: 18.6 cm2 LA A4 area: 16.1 cm2 LA length (vol): 5.7 cm LA vol: 44.9 ml LA vol index: 20.8 ml/m2 TAPSE_phl: 2.7 cm Doppler Measurements & Calculations Ao V2 max: 122.0 cm/sec LVOT Max Grant: 90.1 cm/sec Ao V2 mean: 87.1 cm/sec LV V1 max P.2 mmHg Ao max P.0 mmHg LV V1 VTI: 21.2 cm Ao mean P.0 mmHg NETTIE(I,D): 3.6 cm2 Ao V2 VTI: 26.9 cm NETTIE(V,D): 3.3 cm2 sev ratio: 0.79 NETTIE indexed to BSA (cm^2/m^2): 1.7 MV E max grant: 54.4 cm/sec SV(LVOT): 95.9 ml MV A max grant: 89.5 cm/sec MV E/A: 0.61 Med Peak E' Grant: 4.6 cm/sec E/E' med: 11.7 Lat Peak E' Grant: 12.3 cm/sec E/E' lat: 4.4 E/e' average: 8.1 MV dec time: 0.27 sec AV VR_phl: 0.74 MV P1/2t-pr_phl: 80.0 msec NETTIE(VTI)/BSA_phl: 1.6 Reading Physician:12:31 PM
[2022-01-07] VITALS (13 sets, daily range): BP systolic 102–172; BP diastolic 40–102; PULSE 57–99; RESP 12–16; TEMP 35.8–36.8; O2SAT 94–99
[2022-01-07 06:03] LABS: Add Manual Diff / Slide Review NO; Basophils Absolute Auto 0 /uL (0-100); Basophils Percent Auto 0.7 % (0-2); Eosinophils Absolute Auto 200 /uL (0-450); Eosinophils Percent Auto 2.3 % (2-4); Hematocrit 33.5 % (41-53); Hemoglobin 11.4 g/dL (13.5-17.5); Lymphocytes Absolute Auto 1200 /uL (1100-4500); Lymphocytes Percent Auto 16.8 % (25-40); Mean Corpuscular HGB Conc 33.9 % (30-36); Mean Corpuscular Hemoglobin 32.8 PG (26-34); Mean Corpuscular Volume 96.7 fL (80-100); Monocytes Absolute Auto 600 /uL (0-900); Monocytes Percent Auto 7.8 % (3-14); Neutrophils Absolute Auto 5100 /uL (1500-7000); Neutrophils Percent Auto 72.4 % (50-75); Platelet Count 200 X10^3/uL (150-400); Red Blood Cell Count 3.46 X10^6/uL (4.5-5.9); Red Cell Distribution Width 14.5 % (11.6-14.8); White Blood Cell Count 7.1 X10^3/uL (4.5-11.0)
[2022-01-07 06:12] LABS: BUN Creatinine Ratio 18.7 (6-22); Blood Urea Nitrogen 43 mg/dL (9-20); Calcium 8.1 mg/dL (8.4-10.2); Carbon Dioxide 25 mmol/L (22-32); Chloride 106 mmol/L (98-107); Estimated Glomerular Filt Rate 29 mL/min (>60); Glucose 153 mg/dL (80-110); HEMOLYSIS < 15 (0-50); Magnesium 1.8 mg/dL (1.6-2.3); Sodium 137 mmol/L (137-145)
[2022-01-07 06:41] LABS: TSH w/ Reflex to FT4 1.42 uIU/mL (0.47-4.68)
[2022-01-07 06:44] LABS: Hemoglobin A1C% w Est Avg Glu 5.9 % (4.0-6.0)
[2022-01-07] MEDS: AMLODIPINE 5 MG TABLET 10 MG PO (08:38)
[2022-01-07] MEDS: ENOXAPARIN 40 MG/0.4 ML SYRINGE SUBCUT (08:38)
[2022-01-07] MEDS: INSULIN LISPRO 100 UNIT/ML 3ML VIAL SUBCUT ×2 (08:38→12:06)
--- NOTE | 2022-01-07 10:07 | DI.NM.S_ITS ---
PROCEDURE: NM EXERCISE TREADMILL NON NUC COMPARISON: None. INDICATIONS: chest tightness FINDINGS: The patient exercised for 1 minutes and 43 seconds, reaching 4.6 METs and SHAWN +59%. Submaximal study as only 62% of maximum predicted heart rate achieved. No chest pain and no ST changes with exercise. No ectopy during the study. IMPRESSION: Submaximal stress test as only 62% of maximum predicted heart rate achieved. No ST changes and no angina during the study. No ectopy during the study. Dictated by: Cristobal Jarrett MD on 01/08/2022 at 12:44 Approved by: Cristobal Jarrett MD on 01/08/2022 at 12:46
[2022-01-07] MEDS: lisinopriL 20 MG TABLET PO (12:06)
--- NOTE | 2022-01-07 15:03 | CM.DANOTE ---
Initial DCP Assessment Note Pt is a 76 yo male, resident of [place], arrives w/ SOB/Dizzy, admitted observation for cardiac w/u and scheduled for stress test Friday01.08.22 PCP: Sherman Chen Payer: [facility] Reviewed chart, met w/patient to introduce role. Patient is indp at baseline, states no concern with return home w/roommate/friend Mayte. Patient explains they often help each other w/transportation and assist w/any needs that might arise No barriers identified at this time to patient's safe discharge home w/friend to assist; close outpatient f/u recommended. REYMUNDO Perez Discharge Planning/Care Management CM Discharge Assessment Start: 01/07/22 14:58 Freq: Status: Active Protocol: Document 01/07/22 14:58 MARILYN (Rec: 01/07/22 15:03 MARILYN [id number]) Discharge Planning Assessment Assigned Tailing Hand REYMUNDO Sanchez DPOA/Assigned Designee Name Emergency Contact - Friend Mayte Riley Contact Information [phone] Advance Directives? No History Provided By Patient Has Patient been admitted in last 30 No days? Prior Living Arrangements House Household Members friend(s) Type of transporation used prior to Drives own vehicle admit Independent with ADL's Yes Is patient alert and oriented? Yes Barriers to Discharge No Comment Home via roommate/friend Mayte's pov Discharge Plan Home Transportation Arrangement Friend Referrals Initiated None needed
--- NOTE | 2022-01-07 15:22 | P.PN_ITS ---
Subjective Subjective Date Patient Seen: 01/07/22 Interval history: Overnight again had a 20 minute episode of dizziness. No obvious findings on telemetry though multiple tachyarrythmias on monitor that appear to possibly be motion artifiact, cannot definitively tell. Will proceed with stress testing tomorrow. Exam Vital Signs (past 8 hours): - 01/07/22 08:36 01/07/22 12:06 01/07/22 12:00 Temperature 96.6 F L 98.3 F Pulse Rate 94 H 67 Respiratory Rate 16 16 Blood Pressure 163/79 H 163/79 H 117/62 Pulse Oximetry 99 97 Oxygen Delivery Method Room Air Oxygen Flow Rate 0 Narrative Exam Narrative: General:? Patient is well developed and well nourished, in no distress at this time. HEENT:? Normocephalic, atraumatic, extraocular muscles intact, oral pharynx is clear and mucous membranes are moist. Neck: supple and symmetric, trachea is midline, no cervical adenopathy. Negative for JVD Chest:? Normal AP diameter and contour without kyphoscoliosis, no tachypnea, equal chest rise bilaterally. Lungs:? CTA b/l no wheezing rhonchi or rales. Cardio:?RRR no m/r/g. Abdomen: S NT ND. No CVA tenderness. Musculoskeletal:? Muscle strength and tone are equal within normal limits, no deformity. Extremities: No edema or joint effusions. No cyanosis or clubbing. Skin:? Pale,? Warm to touch,dry and intact without rashes, ulcerations or petechiae.? Neuro:? Alert and orientated x3,? sensation to touch intact in all extremities, no gross deficits noted of cranial nerves. Psych:? Patient has a well-kept appearance, appropriate affect, mental status attitude thought context and judgment are appropriate for age. Objective Labs Result Diagrams: 01/07/22 05:41 01/07/22 05:41 Labs: Laboratory Results - last 24 hr 01/07/22 01/07/22 01/07/22 05:41 05:41 05:41 WBC 7.1 RBC 3.46 L Hgb 11.4 L Hct 33.5 L MCV 96.7 MCH 32.8 MCHC 33.9 RDW 14.5 Plt Count 200 Neut % (Auto) 72.4 Lymph % (Auto) 16.8 L [place] % (Auto) 7.8 Eos % (Auto) 2.3 Baso % (Auto) 0.7 Neut # (Auto) 5100 Lymph # (Auto) 1200 [place] # (Auto) 600 Eos # (Auto) 200 Baso # (Auto) 0 Sodium 137 Potassium 4.0 Chloride 106 Carbon Dioxide 25 BUN 43 H Creatinine 2.30 H Estimated GFR 29 L BUN/Creatinine Ratio 18.7 Glucose 153 H Hemoglobin A1c 5.9 Calcium 8.1 L Magnesium 1.8 TSH 01/07/22 05:41 WBC RBC Hgb Hct MCV MCH MCHC RDW Plt Count Neut % (Auto) Lymph % (Auto) [place] % (Auto) Eos % (Auto) Baso % (Auto) Neut # (Auto) Lymph # (Auto) [place] # (Auto) Eos # (Auto) Baso # (Auto) Sodium Potassium Chloride Carbon Dioxide BUN Creatinine Estimated GFR BUN/Creatinine Ratio Glucose Hemoglobin A1c Calcium Magnesium TSH 1.42 D [facility] Medical History (Updated 01/06/22 @ 09:56 by Kristin Stauffer DO) Chronic kidney disease, stage 3 Diabetes HTN (hypertension) Surgical History (Updated 01/06/22 @ 12:18 by Luke Webster DO) H/O umbilical hernia repair Family History (Updated 01/06/22 @ 12:18 by Luke Webster DO) Father Cancer Brother Congestive heart failure CAD (coronary artery disease) Mother CAD (coronary artery disease) Social History household members: friend(s) Smoking Status: Never smoker alcohol intake: never Assessment & Plan Assessment & Plan narrative: 1. Vertigo - Possible cardiogenic source given NSVT while in the ER. May be symptoms from acute renal failure though not entirely clear. He feels improved now but did have a recurrent episode overnight. - TTE ordered, 8 hour troponin to rule out atypical ACS presentation was unremarkable. - MRI negative for acute infarct. Head CT unremarkable. - continue telemetry - may be atypical anginal symptoms, he also has been having intermittent chest pressure so will proceed with non-nuclear stress testing. 2. WYATT on CKD - unclear etiology at this time. continue telemetry - possible dehydration - TTE ordered as noted above, seems low likelihood this is related to cardiac disease. - may represent progression of CKD, timing for most recent creatinine is unknown. 3. HTN - continue home amlodipine, will resume lisinopril and start beta gina given NSVT per cards recommendations. hold HCTZ for now. 4. DM - diabetic diet - sliding scale 5. NSVT, chest pressure - will add beta gina - TTE ordered, pending. - will get non-nuclear treadmill stress testing given continued symptoms per cardiology recommendations in the ER. 6. Obesity, BMI 36.6 - increases patient's risk for cardiac disease. Code: Full, surrogate is patient's Roommate DVT: lovenox, renal dosing I have utilized all available immediate resources to obtain, update, or review the patient's current medications. Time Spent With Patient Critical Care time: I spent a total of [] minutes of critical care time on this patient's care today; this time is exclusive of procedural time. Quality VTE Deep Vein Thrombosis/Pulmonary Embolism Present on Admission: No
[2022-01-07] MEDS: METOPROLOL ER 25 MG TABLET PO (15:30)
--- NOTE | 2022-01-07 18:41 | PC.NURSE ---
Pt is Axox4, independent and cooperative. VSS, pt denies pain. BG-115 at bedtime so no coverage needed. Pt will have stress test tomorrow and will d/c home. No other changes. Continue monitor.
[2022-01-08] VITALS (8 sets, daily range): BP systolic 102–166; BP diastolic 49–83; PULSE 63–74; RESP 16–18; TEMP 35.8–36.3; O2SAT 95–99
[2022-01-08 06:55] LABS: Add Manual Diff / Slide Review NO; Basophils Absolute Auto 100 /uL (0-100); Basophils Percent Auto 0.8 % (0-2); Eosinophils Absolute Auto 200 /uL (0-450); Eosinophils Percent Auto 2.4 % (2-4); Hematocrit 38.7 % (41-53); Hemoglobin 12.9 g/dL (13.5-17.5); Lymphocytes Absolute Auto 2000 /uL (1100-4500); Lymphocytes Percent Auto 23.7 % (25-40); Mean Corpuscular HGB Conc 33.4 % (30-36); Mean Corpuscular Hemoglobin 32.7 PG (26-34); Mean Corpuscular Volume 97.8 fL (80-100); Monocytes Absolute Auto 600 /uL (0-900); Neutrophils Absolute Auto 5600 /uL (1500-7000); Neutrophils Percent Auto 66.1 % (50-75); Platelet Count 248 X10^3/uL (150-400); Red Blood Cell Count 3.96 X10^6/uL (4.5-5.9); Red Cell Distribution Width 14.6 % (11.6-14.8); White Blood Cell Count 8.5 X10^3/uL (4.5-11.0)
[2022-01-08 07:15] LABS: BUN Creatinine Ratio 17.6 (6-22); Blood Urea Nitrogen 42 mg/dL (9-20); Calcium 8.5 mg/dL (8.4-10.2); Carbon Dioxide 26 mmol/L (22-32); Chloride 103 mmol/L (98-107); Estimated Glomerular Filt Rate 28 mL/min (>60); Glucose 145 mg/dL (80-110); HEMOLYSIS < 15 (0-50); Magnesium 2.1 mg/dL (1.6-2.3); Potassium 4.2 mmol/L (3.4-5.1); Sodium 139 mmol/L (137-145)
[2022-01-08] MEDS: AMLODIPINE 5 MG TABLET 10 MG PO (08:34)
[2022-01-08] MEDS: METOPROLOL ER 25 MG TABLET PO (08:34)
[2022-01-08] MEDS: lisinopriL 20 MG TABLET PO (08:34)
--- NOTE | 2022-01-08 09:45 | PC.NURSE ---
Pt up to br to void-states when he got into the bathroom he felt dizzy (concurrently his tele rhythm showed SR with PVC's, bigeminy, and trigeminy which was confirmed with AUTOMOTIVE VEHICLE INSPECTOR/Charge Alicia. Pt stated his dizziness resolved when he returned to bed. BP 166/83 HR 77.
--- NOTE | 2022-01-08 11:48 | PC.NURSE ---
approx. 1130-Pt to Radiology department for Stress Test via w/c
--- NOTE | 2022-01-08 12:23 | PC.NURSE ---
Pt back from his Stress Test and is seated in his chair. Denies current dizziness or dizziness during his stress test. States he was unable to complete his stress test due to chronic knee pain. Pt now eating lunch and denies needs at this time.
--- NOTE | 2022-01-08 14:42 | PM.DS.1 ---
History of Present Illness History of Present Illness Date Patient Seen: 01/08/22 Time Patient Seen: 14:10 Chief complaint: sob/dizzy Narrative: This is a 76 year old male with PMH of HTN, DM, CKD III (cr approx 1.9-2.0) who presented with abrupt onset of vertigo that woke the patient up overnight. He denies chest pain, palpitations, shortness of breath. He felt chills during this episode. He was also having difficulty ambulating and was needing to hold on to barker. He denied focal weakness, slurred speech, or facial droop but stated he did feel confused.? He denied headaches, over falls, vision changes, dysuria or urinary frequency. He has had no rashes. He does endorse some intermittent chest pressure for many years now, not seemingly related with exercise and can happen with exertion or at rest. Discharge Providers Provider Date of admission: 01/06/22 09:14 Discharge Date: 01/08/22 Primary care physician: Sherman Chen DO Discharge provider: Yandy Ceballos MD Summary Hospital Course Discharge Diagnosis: Most responsible diagnosis: Vertigo Pre admit diagnoses: Vertigo Bigeminy PVCs Hypertension Chronic kidney disease stage 3 Chills Balance difficulty Post admit diagnosis: None. Secondary diagnoses: Diabetes Hospital Course: It was unclear what was causing the patient's vertigo and unsteadiness with walking. It was thought possibly is secondary to chronic kidney disease. However, cardiac cause with assessing this further with an exercise stress test was undertaken. As well, the patient's diuretic was held wondering whether this was a contributing to renal failure and dehydration causing symptoms. Patient was initiated on beta-gina. On the morning the patient was getting ready for his exercise stress test, he had runs of bigeminy and PVCs his heart monitor. He indicated this was when he was getting up quickly but this occurred. He reported that getting up quickly is often when he gets the sensation of dizziness as well. Subsequently to taking his dose of metoprolol for his morning dose, there was no further bigeminy or PVCs. As well exercise stress test there was no evidence of bigeminy or PVCs. The exercise stress test could only be completed approximately 60% of the test and there was no evidence of ischemia during this testing. The roof service technician recommended a pharmacological stress test to be undertaken as an outpatient to fully clear the patient for any ischemic react problems. To benefit any patient's tube dysfunction cause of vertigo, the patient was prescribed Claritin on discharge as well. Patient was encouraged to follow up with his family physician to schedule the outpatient pharmacological stress test. Status at Discharge Cognitive/behavioral status at discharge: at baseline, oriented Functional status at discharge: independent ambulation Overall status at discharge: patient is back to baseline Time Spent with Patient Time spent: Greater than 30 minutes Exam Vital Signs (past 8 hours): - 01/08/22 08:34 01/08/22 08:34 01/08/22 07:50 Temperature Pulse Rate Respiratory Rate Blood Pressure 137/77 137/77 Pulse Oximetry 96 Oxygen Delivery Method Room Air Oxygen Flow Rate 0 01/08/22 11:00 01/08/22 10:00 01/08/22 14:00 Temperature 96.7 F L 96.4 F L Pulse Rate 74 63 Respiratory Rate 16 17 Blood Pressure 166/83 H 102/49 L Pulse Oximetry 97 98 99 Oxygen Delivery Method Room Air Oxygen Flow Rate 0 0 0 Oxygen Delivery Method Room Air Oxygen Flow Rate 0 Narrative Exam Narrative: General:? Patient is well developed and well nourished, in no distress at this time. HEENT:? Normocephalic, atraumatic, extraocular muscles intact, oral pharynx is clear and mucous membranes are moist. Neck: supple and symmetric, trachea is midline, no cervical adenopathy. Negative for JVD Chest:? Normal AP diameter and contour without kyphoscoliosis, no tachypnea, equal chest rise bilaterally. Lungs:? Clear to auscultation with no wheezing rhonchi or rales. Adequate air entry throughout the lung velazquez. Cardio:? Heart sounds S1 and S2 with no extra sounds or murmurs. Abdomen: Soft nontender bowel sounds normal.. No CVA tenderness. Musculoskeletal:? Muscle strength and tone are equal within normal limits, no deformity. Extremities: No edema or joint effusions. No cyanosis or clubbing. Skin:? Pale,? Warm to touch,dry and intact without rashes, ulcerations or petechiae.? Neuro:? Alert and orientated x3,? sensation to touch intact in all extremities, no gross deficits noted of cranial nerves. Psych:? Patient has a well-kept appearance, appropriate affect, mental status attitude thought context and judgment are appropriate for age. Objective Labs Result Diagrams: 01/08/22 06:00 01/08/22 06:00 Labs: Laboratory Results - last 24 hr 01/08/22 01/08/22 06:00 06:00 WBC 8.5 RBC 3.96 L Hgb 12.9 L Hct 38.7 L MCV 97.8 MCH 32.7 MCHC 33.4 RDW 14.6 Plt Count 248 Neut % (Auto) 66.1 Lymph % (Auto) 23.7 L [place] % (Auto) 7.0 Eos % (Auto) 2.4 Baso % (Auto) 0.8 Neut # (Auto) 5600 Lymph # (Auto) 2000 [place] # (Auto) 600 Eos # (Auto) 200 Baso # (Auto) 100 Sodium 139 Potassium 4.2 Chloride 103 Carbon Dioxide 26 BUN 42 H Creatinine 2.39 H Estimated GFR 28 L BUN/Creatinine Ratio 17.6 Glucose 145 H Calcium 8.5 Magnesium 2.1 PFSH Medical History (Updated 01/06/22 @ 09:56 by Kristin Stauffer DO) Chronic kidney disease, stage 3 Diabetes HTN (hypertension) Surgical History (Updated 01/06/22 @ 12:18 by Luke Webster DO) H/O umbilical hernia repair Family History (Updated 01/06/22 @ 12:18 by Luke Webster DO) Father Cancer Brother Congestive heart failure CAD (coronary artery disease) Mother CAD (coronary artery disease) Social History household members: friend(s) Smoking Status: Never smoker alcohol intake: never Discharge Assessment & Plan Assessment and Plan Assessment: Ready for discharge. Plan of Treatment: Obtain new medication at the pharmacy and follow up with family schedule outpatient pharmacological stress test. Discharge Plan Discharge Plan Patient Disposition: Home Provider Discharge Comment: Exercise stress test was completed however patient not able to do more than 60%. No findings of ischemia per Cardiology in the test done. However an outpatient pharmacological stress test would be reasonable to do to further evaluate the patient. Discharge orders & Medications Prescriptions: New acetaminophen 325 mg Tablet 975 mg PO Q8H PRN (Reason: Pain, Mild (1-3)) Qty: 90 0RF metoprolol succinate 25 mg Tablet Extended Release 24 Hr 25 mg PO BID Qty: 60 0RF loratadine [Claritin RediTabs] 10 mg tablet,disintegrating 10 mg PO DAILY Qty: 30 0RF Continued lisinopril 20 mg tablet 20 mg PO DAILY Qty: 30 0RF Label Comments: TAKE 1 TABLET BY MOUTH ONCE DAILY amlodipine 10 mg tablet 10 mg PO DAILY Qty: 30 0RF Label Comments: TAKE 1 TABLET BY MOUTH ONCE DAILY metformin 1,000 mg tablet 1,000 mg PO BID Qty: 60 0RF allopurinol 300 mg tablet 150 mg PO DAILY Qty: 30 0RF glipizide 5 mg tablet 5 mg PO BID Qty: 30 0RF Label Comments: TAKE 1 TABLET BY MOUTH TWICE DAILY rosuvastatin 40 mg tablet 40 mg PO DAILY Qty: 30 0RF Label Comments: TAKE 1 TABLET BY MOUTH ONCE DAILY Discontinued hydrochlorothiazide 12.5 mg tablet 12.5 mg PO DAILY Follow up/Referrals: Sherman Chen DO [Primary Care Provider] - Discharge Data Primary Care Provider: Sherman Chen Attending Provider: Luke Webster VTE Deep Vein Thrombosis/Pulmonary Embolism Present on Admission: No
--- NOTE | 2022-01-08 15:36 | PC.NURSE ---
Pt is dressed and ready for discharge home with Spouse. States he would like to wait down by the ER door for his . Went over d/c instructions with Pt-discussed d/c meds, time of last dose, reviewed stroke education, reminded Pt to get up slowly from laying or standing because he is now taking metoprolol, reminded Pt to drink plenty of fluids to prevent constipation or dehydration and to follow up with his PCP in 1 week. Pt denies further questions and was taken down to ER entrance via w/c by RN with all belongings to be taken home by his Spouse when she arrives.
== END 2022-01-08 15:40 | disposition home or self-care (01) ==
LOC: ED 09:13 → AC 09:15
PROVIDERS: Emergency Medicine; Admitting Provider Internal Medicine; Emergency Provider Emergency Medicine; PCP Family Medicine; Referring Provider Emergency Medicine; Visit Provider Internal Medicine
DX: I47.2 Ventricular tachycardia (principal); R06.02 Shortness of breath; R42 Dizziness and giddiness; E11.9 Type 2 diabetes mellitus without complications; Z79.84 Long term (current) use of oral hypoglycemic drugs; I12.9 Hypertensive chronic kidney disease with stage 1 through stage 4 chronic kidney disease, or unspecified chronic kidney disease; E11.22 Type 2 diabetes mellitus with diabetic chronic kidney disease; N18.30 Chronic kidney disease, stage 3 unspecified; N17.9 Acute kidney failure, unspecified; E66.9 Obesity, unspecified; Z68.36 Body mass index [BMI] 36.0-36.9, adult; Z20.822 Contact with and (suspected) exposure to COVID-19
CPT/HCPCS: 36415; 70450; 70551; 71045; 76770; 80048; 80053; 81001; 82550; 82570; 82962; 83036; 83735; 83880; 84300; 84443; 84484; 85025; 87635; 93005; 93010; 93017; 93306; 99284; C9803; G0378; J1650; J1815; Q9967

== ENCOUNTER → 2023-02-26 14:02 | Outpatient (CLI) | payer OTHER, SELFPAY ==
[2022-01-06 10:56] VITALS: BMI 36.6
--- NOTE | 2023-02-26 | DI.CT.S_ITS ---
PROCEDURE: CT HEAD/BRAIN WO CON INDICATIONS: SLURRED SPEECH/STUTTER AND DROOLING TECHNIQUE: Noncontrast 4.5 mm thick angled axial sections acquired from the foramen magnum to the vertex, with coronal and sagittal reformats. For radiation dose reduction, the following was used: automated exposure control, adjustment of mA and/or kV according to patient size. COMPARISON: [facility], MR, MR HEAD/BRAIN WO CON, 01/06/2022, 10:03. [facility], CT, CT HEAD/BRAIN WO CON, 01/06/2022, 5:38. FINDINGS: Image quality: Excellent. CSF spaces: Basal cisterns are patent. No extra-axial fluid collections. The ventricles are symmetric in size and shape. Brain: No intracranial bleeds or masses. There is cerebral volume loss for age, with resultant ventricular and sulcal prominence. There are periventricular and deep white matter chronic small vessel ischemic changes. There is intracranial internal carotid artery atherosclerosis. Symmetric calcification can be seen involving the basal ganglia, which is considered to be normal for age. Skull and face: Calvarium and visualized facial bones appear intact, without suspicious lesions. Sinuses: Visualized sinuses and mastoids are clear. IMPRESSION: Noncontrast head CT within normal limits for age, similar to the prior. If there is strong clinical suspicion for an acute stroke, please consider a brain MRI for further evaluation, as it is more sensitive (assuming that there is no contraindication to MRI). Dictated by: Terrell Francois M.D. on 02/26/2023 at 13:38 Approved by: Terrell Francois M.D. on 02/26/2023 at 13:40
== END ==
PROVIDERS: PCP Family Medicine; Referring Provider Nurse Practitioner Family; Visit Provider Nurse Practitioner Family
DX: K11.7 Disturbances of salivary secretion (principal); R29.90 Unspecified symptoms and signs involving the nervous system
CPT/HCPCS: 70450

== ENCOUNTER → 2023-05-18 10:43 | Outpatient (CLI) | payer OTHER, SELFPAY ==
[2022-01-06 10:56] VITALS: BMI 36.6
--- NOTE | 2023-05-18 10:44 | DI.MRI.S_ITS ---
PROCEDURE: MR PELIS WO/W CON INDICATIONS: PROSTATE CANCER TECHNIQUE: Coronal HASTE, axial T1 FSE with fat saturation, 3-plane nonbreath-hold T2 FSE. After the administration of contrast, dynamic axial, delayed axial and coronal VIBE or 2-D FLASH with fat saturation through the pelvis. Diffusion weighted imaging and ADC was performed. COMPARISON: None. FINDINGS: Image quality: Diffusion weighted and dynamic contrast enhanced images are diagnostic. Prostate: Gland size is 5 x 4.9 x 4.1 cm; ellipsoid gland volume is 52 mL. Numerous BPH nodules. No significant intrinsic T1 hyperintense foci to suggest hemorrhage. Lesion 1: Location: Left apex peripheral zone. Size: 0.7 cm, (09/20) T2W signal: Hypointense. DWI signal: 3, heterogeneous ADC signal: 3, heterogeneous Enhancement: Absent Extracapsular extension: No. No neurovascular involvement. PI-RADS score: 3 Genitourinary system: Bladder wall thickness is normal. Distal ureters are non distended. Bowel and peritoneum: No pathologic free pelvic fluid. Inferior colon and small bowel loops are normal in caliber. Nodes and vessels: No pelvic or inguinal adenopathy by size criteria. Iliac vessels are normal in caliber. Soft tissues: Right inguinal hernia containing bowel. Right inguinal hernia containing fat. Bones: Marrow demonstrates normal overall signal, without lesions to suggest metastases. IMPRESSION: 1. Prostatomegaly with multiple BPH nodules. 2. Left apex peripheral zone observation measuring 0.7 cm. PI-RADS 3. 3. No enlarged lymph nodes. Dictated by: Tommie Ha M.D. on 05/19/2023 at 0:01 Approved by: Tommie Ha M.D. on 05/19/2023 at 0:15
== END ==
PROVIDERS: PCP Family Medicine; Referring Provider Urology; Visit Provider Urology
DX: C61 Malignant neoplasm of prostate (principal); N40.2 Nodular prostate without lower urinary tract symptoms; K40.30 Unilateral inguinal hernia, with obstruction, without gangrene, not specified as recurrent
CPT/HCPCS: 72197; A9579

== ENCOUNTER → 2023-10-22 08:31 | Outpatient (CLI) | payer MEDICARE, SELFPAY ==
[2022-01-06 10:56] VITALS: BMI 36.6
[2023-10-22 11:06] LABS: Prostate Specific Antigen 11.4 ng/mL (0.10-4.00)
== END ==
PROVIDERS: PCP Family Medicine; Referring Provider Urology; Visit Provider Urology
DX: C61 Malignant neoplasm of prostate (principal)
CPT/HCPCS: 36415; 84153

== ENCOUNTER → 2024-04-20 12:55 | Outpatient (CLI) | payer MEDICARE, SELFPAY ==
[2022-01-06 10:56] VITALS: BMI 36.6
--- NOTE | 2024-04-20 12:56 | DI.US.S_ITS ---
PROCEDURE: US SCROTUM INDICATIONS: INFLAMMATORY DISORDER OF SCROTUM TECHNIQUE: Real-time scanning was performed of the scrotum and testicles, with image documentation. Color and pulse Doppler interrogation was performed of both testicles. COMPARISON: [facility], MR, MR PELVIS WO/W CON, 05/18/2023, 10:58. FINDINGS: Right: Testicle is normal in size at 4.6 x 1.7 x 3.0 cm, and homogenous in echotexture. Epididymis is normal in overall size and morphology. No hydrocele or varicoceles. Overlying scrotal skin is normal in thickness. Left: Testicle is normal in size at 3.3 x 1.8 x 2.6 cm, and homogeneous in echotexture. Transverse in position. Epididymis is normal in overall size and morphology. Moderate hydrocele. No varicoceles. Overlying scrotal skin is thickened. Doppler: Color and pulse Doppler demonstrate normal and symmetric arterial flow in both testicles. Bilateral inguinal hernias containing fat. The scrotum appears to be full of fat. IMPRESSION: 1. Normal appearance of the testes and epididymides. 2. Moderate left hydrocele. 3. Bilateral inguinal hernias containing fat, the scrotum appears to be full of fat. 4. Mild left scrotal wall thickening. Dictated by: Robert Fonseca M.D. on 04/21/2024 at 10:05 Approved by: Robert Fonseca M.D. on 04/21/2024 at 10:08
== END ==
LOC: US 12:56
PROVIDERS: PCP Family Medicine; Referring Provider Student in an Organized Health Care Education/Training Program; Visit Provider Student in an Organized Health Care Education/Training Program
DX: N49.2 Inflammatory disorders of scrotum (principal); N43.3 Hydrocele, unspecified; K40.20 Bilateral inguinal hernia, without obstruction or gangrene, not specified as recurrent
CPT/HCPCS: 76870

== ENCOUNTER → 2024-07-18 15:47 | Outpatient (CLI) | payer MEDICARE, SELFPAY ==
[2022-01-06 10:56] VITALS: BMI 36.6
--- NOTE | 2024-07-18 15:49 | DI.MRI.S_ITS ---
PROCEDURE: MR PELVIC PROSTATE PROTOCOL INDICATIONS: PROSTATE CANCER TECHNIQUE: Coronal HASTE, axial T1 FSE with fat saturation, 3-plane nonbreath-hold T2 FSE. After the administration of contrast, dynamic axial, delayed axial and coronal VIBE or 2-D FLASH with fat saturation through the pelvis. Diffusion weighted imaging and ADC was performed. COMPARISON: [facility], MR, MR PELVIS WO/W CON, 05/18/2023, 10:58. FINDINGS: Image quality: Diffusion weighted and dynamic contrast enhanced images are diagnostic. Prostate: Gland size is 4.6 x 3.4 x 4.3 cm; ellipsoid gland volume is 35 mL. Elevated PSA density is 0.326 Transitional zone heterogenous nodules are present, either well encapsulated or mostly encapsulated, compatible with PI-RADS 1 or 2 likely BPH nodules. Left mid gland and apex peripheral zone lesion is more conspicuous than prior now measuring 1.6 x 1.1 x 1.5 centimeters (09/15, 11/18). There is extracapsular extension in the expected region of the neurovascular bundle (/), measuring about 2-3 millimeters. No definite fat seminal vesicle involvement. DWI score is 5 (/) T2 score 5. DCE positive. PI-RADS 5. Left mid gland peripheral zone lesion measures 0.9 centimeters (09/18). DWI score 4. T2 score 4. DCE positive. PI-RADS 4. This is increased in conspicuity compared to prior Genitourinary system: Trabeculated bladder is usually from chronic obstruction. Bowel and peritoneum: No bowel obstruction in the lower abdomen. No pathologic ascites. Nodes and vessels: No enlarged lymph nodes in the pelvis by size criteria. No aneurysmal vessel identified. Soft tissues: Moderate right fat containing and large left fat and bowel containing inguinal hernias. Bones: No suspicious osseous enhancement. IMPRESSION: Increased conspicuity of bilateral prostate suspected adenocarcinoma lesions. The left peripheral zone lesion has extracapsular extension measures up to 1.6 centimeters. PI-RADS 5. The right peripheral zone lesion measures up to 0.9 centimeters. PI-RADS 4. Seminal vesicles appear clear. No pelvic lymphadenopathy by size criteria. No aggressive osseous abnormality. Given elevated PSA density, consider prostate PET-CT for further staging if clinically indicated. Incidentally noted large left fat and bowel containing inguinal hernia without obstruction. Dictated by: Jonh Jackson M.D. on 07/19/2024 at 9:12 Approved by: John Jackson M.D. on 07/19/2024 at 9:19
== END ==
PROVIDERS: PCP Family Medicine; Referring Provider Urology; Visit Provider Urology
DX: C61 Malignant neoplasm of prostate (principal); R97.20 Elevated prostate specific antigen [PSA]; K40.20 Bilateral inguinal hernia, without obstruction or gangrene, not specified as recurrent
CPT/HCPCS: 72197; A9579

== ENCOUNTER → 2025-02-11 14:24 | Outpatient (CLI) | payer MEDICARE, SELFPAY ==
[2022-01-06 10:56] VITALS: BMI 36.6
--- NOTE | 2025-02-11 14:27 | DI.RAD.S_ITS ---
PROCEDURE: XR LUMBAR SPINE 2-3V INDICATIONS: BACK PAIN TECHNIQUE: 3 views of the lumbar spine were acquired. COMPARISON: None. FINDINGS: Bones: There is mild levoscoliosis. There is also slight L3 anterolisthesis. No focal osseous lesion seen. Moderate multilevel degenerative disc disease as well as facet arthropathy at L3-S1. Soft tissues: Overlying bowel gas pattern is normal. No suspicious soft tissue calcifications. IMPRESSION: Degenerative changes as well as mild levoscoliosis and spondylolisthesis, no focal osseous lesion seen. Dictated by: Yosef Corral M.D. on 02/13/2025 at 14:46 Approved by: Yosef Corral M.D. on 02/13/2025 at 14:48
== END ==
LOC: RAD 14:26
PROVIDERS: PCP Family Medicine; Referring Provider Student in an Organized Health Care Education/Training Program; Visit Provider Student in an Organized Health Care Education/Training Program
DX: M51.369 Other intervertebral disc degeneration, lumbar region without mention of lumbar back pain or lower extremity pain (principal); M51.379 Other intervertebral disc degeneration, lumbosacral region without mention of lumbar back pain or lower extremity pain; M47.816 Spondylosis without myelopathy or radiculopathy, lumbar region; M47.817 Spondylosis without myelopathy or radiculopathy, lumbosacral region; M43.16 Spondylolisthesis, lumbar region; M41.9 Scoliosis, unspecified
CPT/HCPCS: 72100